=== PATIENT | female | born 1925 | race Caucasian/White ===

== ENCOUNTER → 2016-06-22 | Outpatient (CLI) | payer MEDICARE, OTHER, MEDICAID ==
[~2016-06-22] MED LIST: ANTI-DIARRHEAL2 MG PO; APRESOLINE 25MG25 MG PO; ASPI325T6 PO; CEFTIN500 MG PO; CEPHALEXIN500 M1 PO; CIPRO HC OTIC S10 ML OT; COUMADIN 22.5 MG/TAB PO; COUMADIN 3MG3 MG/TAB PO; COZAAR 50MG50 MG/TAB PO; DOXYCYCLINE 10100 MG PO; FERROUS SU325 MG/TAB PO; FISH OIL1000 MG PO; GLUCOTROL 5M5 MG/TAB PO; GLUCOTROL XL2.5 MG PO; IMODIUM 2MG CAPS2 MG PO; JANUVIA 100MG100 MG PO; KLOR-CON M2020 MEQ PO; LANOXIN 0.120.125 MG PO; LASIX 20MG TABL20 MG PO; LEUKERAN; LEVAQUIN 5500 MG/TA1 PO; LOPRESSOR 225 MG/TAB PO; MYRBETR50MG PO; NAMENDA XR 28MG PO; NORCO 325 MG-51 TAB PO; NORVASC 10MG10 MG PO; PREDNISONE20 MG PO; SENOKOT S 50 MG1 TAB PO; SEROQUEL 2525 MG/TAB PO; TOPROL XL 25MG25 MG PO; VITAMIN D2000 I1 PO; ZANTAC 150MG T150 MG PO; ZITHROMAX Z PA250 MG PO; ZOFRAN 4MG T4 MG/TAB PO; ZOFRAN8 MG PO; ZYPREXA2.5 MG PO
== END ==
LOC: BHSO 10:50
DX: F41.1 Generalized anxiety disorder (principal)
CPT/HCPCS: 90791-AI

== ENCOUNTER → 2016-08-19 | Outpatient (CLI) | payer MEDICARE, OTHER, MEDICAID | LOC: COL.RAD 10:58 | DX: K22.8 Other specified diseases of esophagus (principal) ==

== ENCOUNTER → 2017-03-03 | Outpatient (CLI) | payer MEDICARE, OTHER, MEDICAID ==
[2017-03-03 19:36] LABS: MEAN CELL VOLUME 89 fl (80.0-100.0); MEAN CORPUSCULAR HGB CONC 34 g/dl (33.0-37.0); MEAN PLATELET VOLUME 9.6 fl (7.4-10.4); PLATELET COUNT 217 K/mm3 (130-400); RED BLOOD COUNT 3.88 M/mm3 (4.10-5.30); WHITE BLOOD COUNT 11.1 K/mm3 (4.8-10.8)
[2017-03-03 19:37] LABS: HEMATOCRIT 34.7 % (37.0-47.0); HEMOGLOBIN 11.8 g/dl (12.5-16.0); MEAN CORPUSCULAR HEMOGLOBIN 30 pg (27.0-31.0)
[2017-03-03 19:38] LABS: ADD PATHOLOGY DIFF REVIEW NO; CALCIUM 9.3 mg/dL (8.4-10.2); CREATININE, serum 0.63 mg/dL (0.52-1.25); POTASSIUM 4.7 mmol/L (3.4-5.0)
[2017-03-03 20:00] LABS: BAND 14 % (0-10); BASOPHIL 1 % (0-2); LYMPHOCYTE 1 % (20.0-51.0); NEUTROPHILS 79 % (42.0-75.2); PLATELET ESTIMATE NORMAL (NORMAL); TOTAL CELLS COUNTED 100
== END ==
LOC: ZCOL.LAB 19:26
PROVIDERS: Nurse Practitioner Family
DX: C91.12 Chronic lymphocytic leukemia of B-cell type in relapse (principal)

== ENCOUNTER 2017-03-09 15:09 | Inpatient (IN) | payer MEDICARE, OTHER, MEDICAID ==
[~2017-03-09] VITALS: Ht 165.1 cm; Wt 49.6 kg
[2017-03-09 15:55] LABS: INFLUENZA A NEGATIVE; INFLUENZA B NEGATIVE
[2017-03-09 16:10] VITALS: BP 158/73; PULSE 78; TEMP 97.3
[2017-03-09] MEDS ORDERED: LEADER EYE ITCH5 ML OP (16:44)
[2017-03-09] MEDS ORDERED: TYLENOL SU650 MG/SUP RC (16:45)
[2017-03-09] MEDS ORDERED: ZOVIRAX400 MG PO (16:46)
[2017-03-09] MEDS ORDERED: NORVASC 10MG10 MG PO (16:47)
[2017-03-09] MEDS ORDERED: ARICEPT 5MG PO (16:47)
[2017-03-09] MEDS ORDERED: ARTIFICIAL TEAR15 M7 OP (16:48)
[2017-03-09] MEDS ORDERED: ATIVAN 0.50.5 MG/TAB PO (16:49)
[2017-03-09] MEDS ORDERED: DULCOLAX S10 MG/SUPP RC (16:50)
[2017-03-09] MEDS ORDERED: DECADRON 4MG TAB4 MG PO (16:52)
[2017-03-09] MEDS ORDERED: IBU600 MG PO (16:54)
[2017-03-09] MEDS ORDERED: IMODIUM 2MG CAPS2 MG PO (16:54)
[2017-03-09] MEDS ORDERED: CEPHALEXIN500 M1 PO (16:55)
[2017-03-09 16:57] LABS: HEMOGLOBIN 12.1 g/dl (12.5-16.0); MEAN CELL VOLUME 90 fl (80.0-100.0); MEAN CORPUSCULAR HEMOGLOBIN 30 pg (27.0-31.0); MEAN CORPUSCULAR HGB CONC 33 g/dl (33.0-37.0); MEAN PLATELET VOLUME 9.5 fl (7.4-10.4); PLATELET COUNT 317 K/mm3 (130-400); RED BLOOD COUNT 4.06 M/mm3 (4.10-5.30); REDCELL DISTRIBUTION WIDTH-CV 14.6 % (11.5-14.5)
[2017-03-09] MEDS ORDERED: LIDODERM 5% PATC1 EA TP (16:57)
[2017-03-09] MEDS ORDERED: ZESTRIL30 MG PO (16:58)
[2017-03-09] MEDS ORDERED: MILK OF MA400 MG/52 PO (16:58)
[2017-03-09] MEDS ORDERED: ALMACONE 360 M360 ML PO (16:59)
[2017-03-09] MEDS ORDERED: ZOLOFT 50MG50 MG PO (17:01)
[2017-03-09] MEDS ORDERED: CARAFATE 1GM1 G PO (17:02)
[2017-03-09 17:03] LABS: HEMATOCRIT 36.7 % (37.0-47.0)
[2017-03-09] MEDS ORDERED: TYLENOL 325MG325 MG PO (17:03)
[2017-03-09 17:05] LABS: ALBUMIN 3.6 gm/dL (3.5-5.0); BILIRUBIN,TOTAL 1.9 mg/dL (0.0-1.0); CALCIUM 9.7 mg/dL (8.4-10.2); CREATININE, serum 0.64 mg/dL (0.52-1.25); POTASSIUM 4.5 mmol/L (3.4-5.0); TOTAL PROTEIN 6.2 gm/dL (6.4-8.2)
[2017-03-09 17:39] LABS: BAND 9 % (0-10); LYMPHOCYTE 5 % (20.0-51.0); NEUTROPHILS 84 % (42.0-75.2); PLATELET ESTIMATE NORMAL (NORMAL)
[2017-03-09 20:06] VITALS: BP 162/54; PULSE 54; TEMP 97.4
[2017-03-10 00:02] VITALS: BP 145/58; PULSE 64; TEMP 97.7
[2017-03-10 04:17] VITALS: BP 153/76; PULSE 73; TEMP 97.6
[2017-03-10 08:32] VITALS: BP 150/71; PULSE 63; TEMP 98.6
[2017-03-10 12:21] VITALS: BP 151/50; PULSE 63; TEMP 99.4
[2017-03-10 13:01] LABS: INR 1.4 (0.8-3.0)
[2017-03-10 15:26] LABS: GLUCOSE,PLEURAL FLUID 161 mg/dL
[2017-03-10 15:28] LABS: TOTAL PROTEIN,PLEURAL FLUID < 2.0 gm/dL
[2017-03-10 16:56] VITALS: BP 148/61; PULSE 68; TEMP 99.6
[2017-03-10 20:35] VITALS: BP 137/48; PULSE 63; TEMP 98.9
[2017-03-11] VITALS (7 sets, daily range): BP systolic 119–156; BP diastolic 45–74; PULSE 60–121; TEMP 98–99.2
[2017-03-11 05:10] LABS: COLLECTION METHOD CATHETER
[2017-03-11 05:15] LABS: MUCOUS Present /lpf; PH 5 (5-8); SQUAMOUS EPITHELIAL 0-2 /hpf; URINE APPEARANCE Clear; URINE BACTERIA None Seen /hpf; URINE BILIRUBIN Negative (NEGATIVE); URINE BLOOD Negative (NEGATIVE); URINE COLOR Yellow; URINE GLUCOSE 1+ (NEGATIVE); URINE KETONE Negative (NEGATIVE); URINE LEUKOCYTE ESTERASE Negative (NEGATIVE); URINE NITRATE Negative (NEGATIVE); URINE PROTEIN(semi-quant) Negative (NEGATIVE); URINE RBC 0-2 /hpf; URINE UROBILINOGEN Negative (NEGATIVE)
[2017-03-11 07:28] LABS: HEMATOCRIT 39.7 % (37.0-47.0); HEMOGLOBIN 13.1 g/dl (12.5-16.0); MEAN CELL VOLUME 92 fl (80.0-100.0); MEAN CORPUSCULAR HEMOGLOBIN 30 pg (27.0-31.0); MEAN CORPUSCULAR HGB CONC 33 g/dl (33.0-37.0); MEAN PLATELET VOLUME 9.4 fl (7.4-10.4); PLATELET COUNT 348 K/mm3 (130-400); RED BLOOD COUNT 4.31 M/mm3 (4.10-5.30); REDCELL DISTRIBUTION WIDTH-CV 14.6 % (11.5-14.5)
[2017-03-11 07:49] LABS: CALCIUM 8.2 mg/dL (8.4-10.2); CREATININE, serum 0.66 mg/dL (0.52-1.25)
[2017-03-11 08:04] LABS: POTASSIUM 2.8 mmol/L (3.4-5.0)
[2017-03-11 08:30] LABS: BAND 8 % (0-10); BASOPHIL 1 % (0-2); LYMPHOCYTE 3 % (20.0-51.0); METAMYELOCYTE 1 % (0-0); MYELOCYTE 1 % (0-0); NEUTROPHILS 83 % (42.0-75.2); PLATELET ESTIMATE NORMAL (NORMAL)
[2017-03-12 04:23] VITALS: BP 130/56; PULSE 68
[2017-03-12 06:44] LABS: HEMOGLOBIN 12.1 g/dl (12.5-16.0); MEAN CELL VOLUME 93 fl (80.0-100.0); MEAN CORPUSCULAR HEMOGLOBIN 30 pg (27.0-31.0); MEAN CORPUSCULAR HGB CONC 32 g/dl (33.0-37.0); MEAN PLATELET VOLUME 9.2 fl (7.4-10.4); PLATELET COUNT 283 K/mm3 (130-400); RED BLOOD COUNT 4.09 M/mm3 (4.10-5.30); REDCELL DISTRIBUTION WIDTH-CV 14.8 % (11.5-14.5)
[2017-03-12 07:03] LABS: CALCIUM 7.9 mg/dL (8.4-10.2); CREATININE, serum 0.67 mg/dL (0.52-1.25); MAGNESIUM 1.8 mg/dL (1.6-2.3); POTASSIUM 4.1 mmol/L (3.4-5.0)
[2017-03-12 08:01] VITALS: BP 142/56; PULSE 61; TEMP 98.2
[2017-03-12 09:06] LABS: BAND 31 % (0-10); LYMPHOCYTE 4 % (20.0-51.0); NEUTROPHILS 64 % (42.0-75.2); OVALOCYTES 1+; PLATELET ESTIMATE NORMAL (NORMAL)
[2017-03-12 11:35] LABS: ARTERIAL BLD GAS TCO2 CT 32.7; ARTERIAL BLOOD GAS BASE EXCESS 6.6 (-2-2); ARTERIAL BLOOD GAS HCO3 31.3 meq/L (22-26); ARTERIAL BLOOD GAS PCO2 44.9 mmHg (35-45); ARTERIAL BLOOD GAS pH 7.46 (7.35-7.45)
[2017-03-12 11:36] LABS: ARTERIAL BLOOD GAS PO2 46.1 mmHg (80-100)
[2017-03-12 11:50] VITALS: BP 135/56; PULSE 67; TEMP 98.5
[2017-03-12 15:35] VITALS: BP 124/54; PULSE 72; TEMP 97.9
[2017-03-12 20:10] VITALS: BP 127/51; PULSE 67; TEMP 97.9
[2017-03-12 23:44] VITALS: BP 134/50; PULSE 70; TEMP 98.5
[2017-03-13 03:48] VITALS: BP 141/57; PULSE 59; TEMP 98
[2017-03-13 07:43] VITALS: BP 144/58; PULSE 61; TEMP 97.4
[2017-03-13 11:22] VITALS: BP 131/64; PULSE 69; TEMP 97.4
[2017-03-13 15:13] VITALS: BP 124/46; PULSE 59; TEMP 98.3
[2017-03-13 19:42] VITALS: BP 127/45; PULSE 65; TEMP 97.7
[2017-03-14 00:10] VITALS: BP 138/56; PULSE 65; TEMP 98.1
[2017-03-14 03:26] VITALS: BP 130/50; PULSE 61; TEMP 97.8
[2017-03-14 07:53] VITALS: BP 139/52; PULSE 61; TEMP 98.1
[2017-03-14] MEDS ORDERED: TOPROL XL 25MG25 MG PO (09:46)
[2017-03-14] MEDS ORDERED: LASIX ORAL S10 MG/ML PO (09:47)
[2017-03-14 10:20] VITALS: BP 139/52; PULSE 61; TEMP 98.1
== END 2017-03-14 11:25 | DRG 291 ==
LOC: MEDICAL 15:09
PROVIDERS: Internal Medicine; Physician Assistant
PROC: 0W9B3ZZ Drainage of Left Pleural Cavity, Percutaneous Approach (ICD-10-PCS; principal; 2017-03-10)
DX: I13.0 Hypertensive heart and chronic kidney disease with heart failure and stage 1 through stage 4 chronic kidney disease, or unspecified chronic kidney disease (principal); I50.23 Acute on chronic systolic (congestive) heart failure; J96.01 Acute respiratory failure with hypoxia; J90 Pleural effusion, not elsewhere classified; C91.10 Chronic lymphocytic leukemia of B-cell type not having achieved remission; R64 Cachexia; Z68.1 Body mass index [BMI] 19.9 or less, adult; E11.22 Type 2 diabetes mellitus with diabetic chronic kidney disease; N18.3 Chronic kidney disease, stage 3 (moderate); I50.9 Heart failure, unspecified; F03.90 Unspecified dementia, unspecified severity, without behavioral disturbance, psychotic disturbance, mood disturbance, and anxiety; I48.91 Unspecified atrial fibrillation; Z95.0 Presence of cardiac pacemaker; Z95.2 Presence of prosthetic heart valve; E86.0 Dehydration; Z79.01 Long term (current) use of anticoagulants; E87.6 Hypokalemia
CPT/HCPCS: 99223-AI; 99232-AI; 99233-AI; 99239; J0692; J1650; J1815; J1940; J3370; J7030; J7050

== ENCOUNTER 2017-03-28 02:07 | Emergency (ER) | payer MEDICARE, OTHER, MEDICAID ==
[~2017-03-28] VITALS: Ht 165.1 cm; Wt 52.3 kg
[~2017-03-28 02:07] MED LIST changes: +ALMACONE 360 M360 ML PO; +ARICEPT 5MG PO; +ARTIFICIAL TEAR15 M7 OP; +ATIVAN 0.50.5 MG/TAB PO; +CARAFATE 1GM1 G PO; +DECADRON 4MG TAB4 MG PO; +DULCOLAX S10 MG/SUPP RC; +IBU600 MG PO; +LASIX ORAL S10 MG/ML PO; +LEADER EYE ITCH5 ML OP; +LIDODERM 5% PATC1 EA TP; +MILK OF MA400 MG/52 PO; +TYLENOL 325MG325 MG PO; +TYLENOL SU650 MG/SUP RC; +ZESTRIL30 MG PO; +ZOLOFT 50MG50 MG PO; +ZOVIRAX400 MG PO
[2017-03-28 02:10] VITALS: TEMP 97.5
[2017-03-28 03:15] LABS: HEMATOCRIT 41.2 % (37.0-47.0); HEMOGLOBIN 13.6 g/dl (12.5-16.0); MEAN CELL VOLUME 91 fl (80.0-100.0); MEAN CORPUSCULAR HEMOGLOBIN 30 pg (27.0-31.0); MEAN CORPUSCULAR HGB CONC 33 g/dl (33.0-37.0); MEAN PLATELET VOLUME 9.3 fl (7.4-10.4); PLATELET COUNT 184 K/mm3 (130-400); RED BLOOD COUNT 4.53 M/mm3 (4.10-5.30); REDCELL DISTRIBUTION WIDTH-CV 15.5 % (11.5-14.5)
[2017-03-28 03:23] LABS: BAND 15 % (0-10); LYMPHOCYTE 4 % (20.0-51.0); NEUTROPHILS 75 % (42.0-75.2); PLATELET ESTIMATE NORMAL (NORMAL)
[2017-03-28 03:24] LABS: ANISOCYTOSIS 1+
[2017-03-28 03:25] LABS: ALBUMIN 4.1 gm/dL (3.5-5.0); BILIRUBIN,TOTAL 0.9 mg/dL (0.0-1.0); CREATININE, serum 0.69 mg/dL (0.52-1.25); POTASSIUM 3.5 mmol/L (3.4-5.0); TOTAL PROTEIN 6.6 gm/dL (6.4-8.2)
[2017-03-28 03:47] LABS: COLLECTION METHOD CATHETER
[2017-03-28 03:53] LABS: MUCOUS Present /lpf; PH 5 (5-8); SQUAMOUS EPITHELIAL None Seen /hpf; URINE APPEARANCE Clear; URINE BACTERIA None Seen /hpf; URINE BILIRUBIN Negative (NEGATIVE); URINE BLOOD Negative (NEGATIVE); URINE COLOR Yellow; URINE GLUCOSE Negative (NEGATIVE); URINE KETONE Negative (NEGATIVE); URINE LEUKOCYTE ESTERASE Negative (NEGATIVE); URINE NITRATE Negative (NEGATIVE); URINE PROTEIN(semi-quant) Negative (NEGATIVE); URINE UROBILINOGEN Negative (NEGATIVE)
[2017-03-28] MEDS ORDERED: LEVEMIR100 U/ML SQ (05:11)
[2017-03-28] MEDS ORDERED: NOVOLOG FLEX100 U/ML SQ (05:12)
[2017-03-28 05:40] VITALS: BP 155/87; PULSE 65
== END 2017-03-28 05:48 | disposition home or self-care (01) ==
LOC: COL.ER 02:07
PROVIDERS: Emergency Medicine
DX: E11.65 Type 2 diabetes mellitus with hyperglycemia (principal); R94.5 Abnormal results of liver function studies; I50.9 Heart failure, unspecified; I48.91 Unspecified atrial fibrillation; F03.90 Unspecified dementia, unspecified severity, without behavioral disturbance, psychotic disturbance, mood disturbance, and anxiety; I10 Essential (primary) hypertension; Z85.6 Personal history of leukemia; Z87.440 Personal history of urinary (tract) infections; Z79.4 Long term (current) use of insulin
CPT/HCPCS: J7030